=== PATIENT | female | born 1970 | race Two or more races ===

== ENCOUNTER 2025-09-04 11:05 | Day surgery (SDC) | payer MEDICAID, SELFPAY ==
[2025-09-03 12:50] VITALS: BMI 32.3
--- NOTE | 2025-09-03 13:04 | EKG_ITS ---
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
[2025-09-03 13:29] LABS: Basophils # (Auto) 0.0 Thou/mm3 (0.0-0.2); Basophils % (Auto) 0 % (0-2.5); Eosinophils # (Auto) 0.1 Thou/mm3 (0.0-0.5); Eosinophils % (Auto) 2 % (0-10); Hematocrit 43.8 % (36.0-46.0); Hemoglobin 14.6 g/dL (12.0-16.0); Immature Granulocytes Auto 0.02 Thou/mm3 (0.00-0.00); Lymphocytes # (Auto) 2.4 Thou/mm3 (1.0-4.8); Lymphocytes % (Auto) 34 % (10-50); Mean Corpuscular HGB Conc 33.3 g/dl (31.0-37.0); Mean Corpuscular Hemoglobin 29.3 pg (25.0-35.0); Mean Corpuscular Volume 88 fL (80-100); Monocytes # (Auto) 0.3 Thou/mm3 (0.0-0.8); Monocytes % (Auto) 5 % (0-12); Neutrophils # (Auto) 4.1 Thou/mm3 (1.8-7.7); Neutrophils % (Auto) 59 % (37-80); Nucleated Red Blood Cell # 0.00 Thou/mm3 (0.00-0.00); Nucleated Red Blood Cell % 0 /100 WBC (0); Platelet Count 282 Thou/mm3 (140-440); RDW Standard Deviation 40.8 fL (36.4-46.3); Red Blood Count 4.98 Miln/mm3 (4.00-5.20); White Blood Count 6.9 Thou/mm3 (3.6-11.0)
[2025-09-03 13:47] LABS: Alanine Aminotransferase 18 U/L (10-49); Albumin, Serum 4.9 gm/dL (3.5-5.0); Albumin/Globulin Ratio 1.8 (1.2-2.2); Alkaline Phosphatase 95 U/L (46-116); Anion Gap 9 (7-16); Aspartate Amino Transferase 25 U/L (0-34); BUN/Creatinine Ratio 13 Ratio (12-20); Bilirubin,Total 1.2 mg/dL (0.3-1.2); Blood Urea Nitrogen 10 mg/dL (9-23); Calcium 9.8 mg/dL (8.3-10.6); Calcium (Corrected) 9.8 mg/dL (8.5-10.1); Carbon Dioxide 31.2 mMol/L (20.0-31.0); Chloride 102 mMol/L (98-107); Creatinine (Component) 0.8 mg/dL (0.6-1.3); Estimated Creatinine Clearance 70.5 mL/min (>60); Globulin 2.7 gm/dL (2.3-3.5); Glucose 98 mg/dL (74-106); Osmolality,Calculated 282 (275-295); Potassium 3.8 mMol/L (3.4-5.1); Sodium 142 mMol/L (136-145); Total Protein 7.6 gm/dL (5.7-8.2); eGFR > 60 See Note
[2025-09-03 14:06] LABS: INR 1.1 (0.9-1.3); Partial Thromboplastin Time 28.5 Seconds (22.0-36.0); Prothrombin Time 11.3 Seconds (9.0-12.2)
[2025-09-04] VITALS (8 sets, daily range): BP systolic 122–136; BP diastolic 67–82; PULSE 61–122; RESP 13–24; TEMP 36.3–36.6; O2SAT 95–98; BMI 31.6
--- NOTE | 2025-09-04 15:03 | PD.SUROPNT ---
Date of Procedure 09/04/25 Pre Op Diagnosis 1. Left shoulder impingement syndrome 2 left rotator cuff tear Post Op Diagnosis Same Procedure 1. Excision lateral end of the clavicle 2. Excision coracoacromial ligament 3. Acromioplasty 4. Repair of rotator cuff 5. Manipulation under anesthesia Findings Refer dictation Procedure Description The patient was given general endotracheal anesthesia. The shoulder block was also given. Once satisfactory anesthesia was achieved patient was put in about 45?? sitting position with sandbag underneath the left shoulder blade. The part was thoroughly prepped and draped. A skin incision was made at the AC joint extending proximally towards the neck for a half inches and distally towards the arm for about couple of inches. Deeper dissection was carried out. Bleeding vessels were electrocoagulated as and when encountered. The soft tissue was reflected. Following that AC joint was exposed and AC joint was exposed. The deltoid muscle was reflected from the anterior and lateral aspect of the acromial process. There was 3 mm long anterior osteophyte and about couple of millimeter long lateral osteophytes coming out from the acromial process. Following that a periosteal elevator was placed underneath the lateral end of the clavicle and lateral 3-4 mm was excised. The coracoacromial ligament was removed. Following that anterior 2 mm and lateral 2 mm along with osteophytes were excised from the acromial process. With the help of curved osteotome the undersurface of the Acromial processes was chiseled out. That made more room between the superior surface of the head of the humerus and undersurface of the acromial process. Following that the rotator cuff was inspected. It revealed big oval tear, however most of the fibers were attached to the greater tuberosity. Wound was irrigated with antibiotic solution every 4-5 minutes. The left shoulder was manipulated at this time. The rotator cuff tear was repaired with 2-0 Vicryl. 2 drill holes were made on the acromial process and deltoid muscle was stitched back to it. Some reinforcement sutures were placed. The subcutaneous tissue was then closed with the help of 2-0 Vicryl. The skin was closed with subcuticular Monocryl After cleaning the wound with hydrogel proximal solution and sterile dressing was applied. Prineo tape was applied. Patient was taken to the recovery room in good condition. Estimated blood loss 20 mL. Prognosis in this case is good. Anesthesia GETA and other Pathology / specimen None Estimated Blood Loss 20 Surgeon Nikolay Flores MD Surgical Staff Operation Date: 09/04/25 13:45 Case Staff Anesthesiologist: Clayton Ward RNsoftware development engineer: Haily Potts
--- NOTE | 2025-09-04 15:15 | SUR.PHASEI ---
1515: pt received from OR via [facility]. received report from ALLEY Madison and Dr. Ward. pt alert and oriented. no s/s of resp. distress or discomfort. denies any pain or discomfort. dressing to right shoulder clean, dry and intact. positive CMS: cap refill less than 3 seconds, able to wiggle left fingers and positive pulse.
--- NOTE | 2025-09-04 15:42 | SUR.PHASEI ---
1542: able to drink water with ice without any difficulty
--- NOTE | 2025-09-04 16:13 | ESHP_ITS ---
RE: LUIS FELIPE RODRIGUEZ : 1970 DATE OF ADMISSION: 09/04/2025 The patient was seen by me in my office on 09/03/2025. The patient presented to me earlier with history of pain in the left shoulder. Pain is going on for few years, but last few months are extremely painful. The patient graded intensity of pain to be 7-8/10. Unable to raise left arm above the shoulder level. Unable to sleep. Basically, quality of life and activity of daily living are affected. PAST MEDICAL HISTORY: The patient has history of high blood pressure and diabetes mellitus. No history of asthma, seizures, chest pain, myocardial infarction, bleeding disorder or stroke. PAST SURGICAL HISTORY: Nil. DRUG HISTORY: The patient is on: 1. Atorvastatin. 2. Lisinopril. 3. Hydrochlorothiazide. 4. Loratadine. 5. Metformin. 6. Ozempic. 7. Famotidine. ALLERGIES: NIL KNOWN. FAMILY HISTORY AND SOCIAL HISTORY: The patient denies smoking, drinking, and is not working. PHYSICAL EXAMINATION: GENERAL: Normal built person. VITAL SIGNS: Pulse is 62 per minute and blood pressure is 124/76. NECK: Soft and supple. No mass felt. Trachea is centrally placed. CARDIOVASCULAR SYSTEM: First and second heart sound normal. No murmur heard. RESPIRATORY SYSTEM: Bilateral vesicular breath sounds. Chest clear. ABDOMEN: Soft. No mass felt. Bowel sounds present. BREAST EXAMINATION: Not indicated in this case. The patient is advised to see the family physician for rectal examination. Left shoulder examination revealed 2+ tenderness at AC joint and also at subdeltoid and subacromial space. Active range of motion 0-80 degrees of abduction, 0-90 degrees of forward flexion. Internal rotation is only restricted and painful. Impingement test, Rebel test, and drop arm test are positive. The patient has weak fist gate person. DIAGNOSTIC DATA: MRI scan of the left shoulder revealed partial tear of the supraspinatus and infraspinatus tendon. 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 There is downsloping acromial process. There is subdeltoid and subacromial bursitis. ASSESSMENT AND PLAN: Since patient is symptomatic and is affecting her quality of life, therefore open surgery was discussed and advised. I explained that I do open surgery. I also explained that there are some surgeons, who do arthroscopic surgery and if she wants, we can refer her out. However, patient stated that she would like to get surgery done by me and she is perfectly all right to go ahead with the open surgery. Risk with anesthesia was explained and that includes, but not limited to reaction to anesthetic agents, cardiac arrest and rarely it might be fatal. Surgical procedure was discussed and explained with the help of shoulder model and posters. Risk with surgery includes infection and if that happens, patient may need further surgical procedure. The left shoulder will be manipulated. There is a risk of possible injury to bone and/or nerves. No guarantee is given regarding outcome of the procedure and/or relief of symptoms and/or functional outcome. Indeed, physical therapy is very important component for successful outcome of these kind of procedure and full cooperation is always helpful in achieving greater goals. The patient is fully aware of that. The patient is cleared for surgical procedure. The patient's HbA1c was 5.8. Surgery booked for 09/04/2025. DT: 15:11:07 TT: 16:11:00 Ref: [id number] - TID: [id number]
--- NOTE | 2025-09-04 16:44 | SUR.PHASEII ---
1644: pt discharge to home via wheelchair. pt alert and oriented. no s/s of resp. distress or discomfort. denies any pain or discomfort. dressing to left shoulder clean, dry and intact. positive CMS: able to wiggle left fingers, cap refill less than 3 seconds and positive pulse. discharge instructions given to daughter and pt, verbalizes understanding. all belongings brought given back to patient.
== END 2025-09-04 16:44 | disposition home or self-care (01) ==
PROVIDERS: Anesthesiology; Referring Provider Orthopaedic Surgery; Visit Provider Orthopaedic Surgery
PROC: (CPT 23412; principal; 2025-09-04 13:30)
DX: M75.102 Unspecified rotator cuff tear or rupture of left shoulder, not specified as traumatic (principal); M75.42 Impingement syndrome of left shoulder; Z01.810 Encounter for preprocedural cardiovascular examination; M75.52 Bursitis of left shoulder; M19.012 Primary osteoarthritis, left shoulder; M25.712 Osteophyte, left shoulder
CPT/HCPCS: 23412; 23120; 36415; 80053; 85025; 85610; 85730; 93005; A4649; J0690; J1100; J1580; J2250; J2704; J2765; J2795; J3010; J3490